=== PATIENT | male | born 1995 | race African-American/Black ===

== ENCOUNTER 2020-04-25 13:41 | Emergency (ER) | payer BC, OTHER ==
[2020-04-27 14:19] LABS: SARS-CoV-2 MS2 Positive; SARS-CoV-2 N Gene Negative; SARS-CoV-2 S Gene Negative; SARS-CoV-2 orf1ab Negative
== END 2020-04-25 14:45 | disposition home or self-care (01) ==
LOC: NAV ERS 13:41
DX: J06.9 Acute upper respiratory infection, unspecified (principal)
CPT/HCPCS: 87635; 99283; U0003

== ENCOUNTER 2021-01-04 03:25 | Emergency (ER) | payer BC, OTHER, SELFPAY ==
[2021-01-04] MEDS ORDERED: Acetaminophen 500 MG TAB ONE (03:55)
[2021-01-04 13:56] LABS: SARS-CoV-2 PCR by NAA Not Detected (NotDetected)
== END 2021-01-04 04:21 | disposition home or self-care (01) ==
LOC: NAV ERS 03:25
DX: R09.81 Nasal congestion (principal); R51.9 Headache, unspecified; R53.81 Other malaise; Z20.822 Contact with and (suspected) exposure to COVID-19
CPT/HCPCS: 87635; 99283; U0003; U0005

== ENCOUNTER 2021-08-16 06:38 | Emergency (ER) | payer BC, SELFPAY ==
[2021-08-16] MEDS ORDERED: Sodium Chloride 0.9% 1,000 ML ONE (07:41)
[2021-08-16] MEDS ORDERED: Ondansetron PF 4 MG/2 ML Vial ONE (07:41)
[2021-08-16] MEDS ORDERED: Ketorolac Tromethamine 30 MG/ML VIAL ONE (07:41)
[2021-08-16 08:08] LABS: #Basophils 0.1 thou/uL (0.0-0.2); #Eosinphils 0.6 thou/uL (0.0-0.7); #Lymphocytes 1.6 thou/uL (1.20-3.40); #Monocytes 0.6 thou/uL (0.11-0.59); #Neutrophils 2.6 thou/uL (1.40-6.50); %Basophils 1.7 % (0.0-1.0); %Eosinophils 11.2 % (0.0-10.0); %Monocytes 11.2 % (0.0-10.0); %Neutrophils 46.9 % (42.0-75.0); Hemoglobin 14.6 g/dL (14.0-18.0); Mean Corpuscular HGB CONC 32.2 g/dL (32.0-36.0); Mean Corpuscular Hemoglobin 29.1 pg (27.0-31.0); Mean Corpuscular Volume 90.3 fL (78.0-98.0); Mean Platelet Volume 6.7 fL (7.4-10.4); Platelet Count 275 thou/uL (130-400); RBC Distribution Width 13.1 % (11.5-14.5); Red Blood Cell (RBC) Count 5.03 mill/uL (4.70-6.10); White Blood Cell (WBC) Count 5.5 thou/uL (4.8-10.8)
[2021-08-16 08:21] LABS: ALT (SGPT) 9 U/L (8-55); AST (SGOT) 20 U/L (5-34); Albumin 3.9 g/dL (3.5-5.0); Alkaline Phosphatase 59 U/L (40-110); Anion Gap 10 mmol/L (10-20); BUN (Urea Nitrogen) 14 mg/dL (8.9-20.6); Bilirubin, Total 0.5 mg/dL (0.2-1.2); Calc. Creatinine Clearance 0 mL/min (70-130); Calcium 9.1 mg/dL (7.8-10.44); Carbon Dioxide 25 mmol/L (22-29); Chloride 108 mmol/L (98-107); Glucose 91 mg/dL (70-105); Lipase 19 U/L (8-78); Protein, Total 6.9 g/dL (6.0-8.3); Sodium 139 mmol/L (136-145)
[2021-08-16 08:51] LABS: Bilirubin Negative (Negative); Blood, Urine Negative (Negative); Clarity Clear (Clear); Glucose, Urine (Dipstick) Negative (Negative); Ketone, Urine Negative (Negative); Leukocyte Negative (Negative); Nitrite Negative (Negative); Protein, Urine (Dipstick) Negative (Neg-Trace); pH, Urine 5.5 (5.0-9.0)
== END 2021-08-16 09:20 | disposition home or self-care (01) ==
LOC: NAV ERS 06:38
DX: E86.0 Dehydration (principal); R11.2 Nausea with vomiting, unspecified; R19.7 Diarrhea, unspecified; R10.13 Epigastric pain; R10.12 Left upper quadrant pain; F17.210 Nicotine dependence, cigarettes, uncomplicated
CPT/HCPCS: 80053; 81003; 83690; 85025; 96374; 96375; J1885; J2405; J7050

== ENCOUNTER 2022-05-17 22:05 | Emergency (ER) | payer BC, SELFPAY ==
[2022-05-17] MEDS ORDERED: Ibuprofen 800 MG TAB ONE (22:30)
== END 2022-05-17 23:10 | disposition home or self-care (01) ==
LOC: NAV ERS 22:05
DX: U07.1 COVID-19 (principal); F17.210 Nicotine dependence, cigarettes, uncomplicated
CPT/HCPCS: 87804; 99284; U0003; U0005

== ENCOUNTER 2022-10-26 16:21 | Emergency (ER) | payer SELFPAY | END 2022-10-26 17:04 | disposition home or self-care (01) | LOC: NAV ERS 16:21 | DX: J02.9 Acute pharyngitis, unspecified (principal); F10.129 Alcohol abuse with intoxication, unspecified; F17.210 Nicotine dependence, cigarettes, uncomplicated | CPT/HCPCS: 99283 ==

== ENCOUNTER 2022-12-24 12:24 | Emergency (ER) | payer BC, SELFPAY | END 2022-12-24 13:16 | disposition left against medical advice (07) | LOC: NAV ERS 12:24 | DX: Z53.21 Procedure and treatment not carried out due to patient leaving prior to being seen by health care provider (principal) ==

== ENCOUNTER 2023-06-27 12:33 | Emergency (ER) | payer SELFPAY ==
[2023-06-27] MEDS ORDERED: Ibuprofen 800 MG TAB ONE (12:57)
== END 2023-06-27 13:01 | disposition home or self-care (01) ==
LOC: NAV ERS 12:33
DX: M26.601 Right temporomandibular joint disorder, unspecified (principal); H65.91 Unspecified nonsuppurative otitis media, right ear; F17.210 Nicotine dependence, cigarettes, uncomplicated
CPT/HCPCS: 99283

== ENCOUNTER 2023-08-07 22:23 | Emergency (ER) | payer BC ==
[2023-08-07] MEDS ORDERED: Ibuprofen 800 MG TAB ONE (22:39)
== END 2023-08-07 23:07 | disposition home or self-care (01) ==
LOC: NAV ERS 22:23
DX: B34.9 Viral infection, unspecified (principal); F17.210 Nicotine dependence, cigarettes, uncomplicated; Z20.822 Contact with and (suspected) exposure to COVID-19
CPT/HCPCS: 87635; 87804; 99283

== ENCOUNTER 2024-04-01 19:02 | Emergency (ER) | payer BC ==
[2024-04-01] MEDS ORDERED: Tetracaine 0.5% PF 4 ML BOT ONE (19:23)
[2024-04-01] MEDS ORDERED: Fluorescein Opthalmic Strip ONE (19:23)
== END 2024-04-01 19:45 | disposition home or self-care (01) ==
LOC: NAV ERS 19:02
DX: B30.9 Viral conjunctivitis, unspecified (principal); F17.210 Nicotine dependence, cigarettes, uncomplicated
CPT/HCPCS: 99283

== ENCOUNTER 2025-09-13 04:43 | Emergency (ER) | payer SELFPAY ==
[2025-09-13] MEDS ORDERED: Naproxen 500 MG TAB ONE (05:03)
[2025-09-13] MEDS ORDERED: Tetracaine 0.5% PF 4 ML BOT ONE (05:03)
== END 2025-09-13 07:30 | disposition home or self-care (01) ==
LOC: NAV ERS 04:43
DX: H92.01 Otalgia, right ear (principal); H66.91 Otitis media, unspecified, right ear; F17.210 Nicotine dependence, cigarettes, uncomplicated
CPT/HCPCS: 70480